=== PATIENT | male | born 1985 | race Caucasian/White ===

== ENCOUNTER 2017-11-07 15:34 | Emergency (ER) | payer OTHER ==
[~2017-11-07] VITALS: Ht 182.9 cm; Wt 77.1 kg
[~2017-11-07 15:34] MED LIST: KEFLEX500 MG PO
[2017-11-07 15:36] VITALS: BP 129/77
[2017-11-07] MEDS ORDERED: KEFLEX500 M1 PO (16:01)
[2017-11-07] MEDS ORDERED: BACTRIM DS TAB1 EACH PO (16:01)
== END 2017-11-07 16:30 ==
LOC: ER 15:34
DX: L02.31 Cutaneous abscess of buttock (principal)